=== PATIENT | female | born 1990 | race Caucasian/White ===

== ENCOUNTER 2022-01-26 19:26 | Emergency (ER) | payer MEDICAID ==
[~2022-01-26] VITALS: Ht 152.4 cm; Wt 68.8 kg
[2022-01-26 19:40] VITALS: BP 100/50
[2022-01-26] MEDS ORDERED: TETRACAINE 0.5% OPHTH DROPS 4ML LEFTEYE ONE (21:00)
[2022-01-26] MEDS ORDERED: TETRACAINE 0.5% OPHTH DROPS 4ML LEFTEYE NR (21:30)
== END 2022-01-26 22:14 | disposition home or self-care (01) ==
LOC: ER 19:26
DX: G44.009 Cluster headache syndrome, unspecified, not intractable (principal); H57.12 Ocular pain, left eye
CPT/HCPCS: 81025; 99284